=== PATIENT | female | born 1945 | race Caucasian/White ===

== ENCOUNTER 2018-07-11 06:10 | Day surgery (SDC) | payer MEDICARE ==
[2018-07-10 14:02] LABS: HEMATOCRIT 39.7 % (36.0-48.0); HEMOGLOBIN 13.4 g/dL (12-16); MCH 30.2 pg (26.0-34.0); MCHC 33.8 g/dL (31.0-37.0); MCV 89.4 fL (80.0-100.0); MEAN PLATELET VOLUME 8.9 fL (7.4-10.4); RBC 4.44 10x6/uL (4.00-5.40); RDW 14.1 % (11.5-14.5); WBC 7.5 10x3/uL (4.8-10.8)
[~2018-07-11] VITALS: Ht 162.6 cm; Wt 68.0 kg
--- NOTE | ~2018-07-11 | OP ---
PATIENT NAME: TONYA SHIN MEDICAL RECORD: [id number] :47 LOCATION:[facility] ADMISSION DATE: SURGEON: DENISE GARCIA DPM DATE OF OPERATION: 07/11/2018 PREOPERATIVE DIAGNOSES: 1. Enlarged head of the proximal phalanx of the fifth digit. 2. Enlarged base of the fourth digit proximal phalanx. 3. Enlarged fourth metatarsal head. POSTOPERATIVE DIAGNOSES: 1. Enlarged head of the proximal phalanx of the fifth digit. 2. Enlarged base of the fourth digit proximal phalanx. 3. Enlarged fourth metatarsal head. PROCEDURES: 1. Right fifth PIPJ arthroplasty. 2. Right fourth proximal phalanx partial resection. 3. Partial fourth met head resection. ANESTHESIA: Local with IV sedation utilizing lidocaine and Marcaine plain 10 cc on the 4th and 5th ray of the right foot. HEMOSTASIS: Right ankle tourniquet at 250 mmHg. PREOPERATIVE DETAILS: The patient was taken to the OR and placed on the operating table in a supine position. This was followed by induction of general anesthesia and infiltration of local anesthetic. The right extremity was then prepped and draped in usual aseptic technique, followed by exsanguination and inflation of tourniquet. PROCEDURE #1: PIPJ arthroplasty, right fifth digit: A 15-blade was used to create a 1.5-cm linear incision over the dorsal aspect of the PIPJ of the right 5th digit. Incision was deepened down through subcutaneous tissue to the extensor longus tendon, which was transected in a transverse fashion. The head of the proximal phalanx was then delivered and resected with a bone cutter. The wound was flushed. The extensor longus tendon was repaired with 4-0 Rapide and the skin was closed with 4-0 Rapide in a subcuticular technique followed by Dermabond. PROCEDURE #2: Partial resection of the base of the fourth proximal phalanx, right foot: A 15 blade was used to create a 2-cm linear incision over the dorsal aspect of the right fourth MPJ. The incision was deepened down through subcutaneous tissue to the extensor expansion apparatus. A linear incision was made between the extensor longus and extensor brevis tendon in a longitudinal fashion exposing the base of the proximal phalanx. A sagittal saw was used to resect the base of the proximal phalanx on the lateral side approximately 3-4 mm. Once this was accomplished, the wound was flushed. PROCEDURE #3: Partial fourth met head resection: Utilizing the incision described in #2, a sagittal saw was used to remove approximately 2-3 mm of the lateral aspect of the fourth metatarsal head. All rough areas were smoothed with a bone rasp. Wound was flushed. The capsule was reapproximated with 2-0 Vicryl, the subcutaneous tissue was reapproximated with 4-0 Rapide, and the skin was closed with 4-0 Rapide in a subcuticular technique, followed by Dermabond. OPERATIVE REPORT [id number] ALEIDA,TONYA Adaptic, 4 x 4, and Conform were used to dress the wound, followed by Mike wrap. Tourniquet was deflated. POSTOPERATIVE DETAILS: The patient tolerated the procedure well and left the OR with vital signs stable and vascular status at preoperative levels. The patient was transferred to recovery per anesthesia in stable condition. TRANSINT:[id number] Voice Confirmation ID: [id number] DOCUMENT ID: [id number] DENISE GARCIA DPM at 0915 CC: [id number] DICTATION DATE: 07/11/18920 [employer] INSPECTOR: 07/11/18 09 [facility] 07/11/18 [id number] [place] [id number]
[~2018-07-11 06:10] MED LIST: ASPIRIN 81 MG E81 MG PO; CALCIUM 600+D T1 TA1 PO; DESERYL100 MG PO; EFFEXOR75 MG PO; ESTRACE1 MG PO; FIBER THERAPY1368 GM PO; PRAVACHOL80 MG PO; PRINIVIL20 MG PO
[2018-07-11] MEDS ORDERED: BUPROPION XL150 MG PO (06:43)
[2018-07-11] MEDS ORDERED: ATIVAN1 MG (06:44)
[2018-07-11] MEDS ORDERED: HYDROCODON-ACE1 EAC7 PO (06:45)
[2018-07-11] MEDS ORDERED: MOBIC7.5 MG PO (06:45)
[2018-07-11] MEDS ORDERED: FUROSEMIDE10 MG/M1 IV (06:46)
[2018-07-11 07:01] VITALS: BP 115/62; Ht 162.6 cm; Wt 68.0 kg
== END 2018-07-11 11:15 | disposition home or self-care (01) ==
LOC: D.OPS 06:10 → D.PAN 08:20 → D.OPS 08:30 → D.PAN 11:00 → D.OPS 11:00
PROVIDERS: Anesthesiology
DX: M89.371 Hypertrophy of bone, right ankle and foot (principal); Z01.812 Encounter for preprocedural laboratory examination